=== PATIENT | male | born 1965 | race Caucasian/White ===

== ENCOUNTER → 2022-11-03 | Outpatient (CLI) | payer BC ==
--- NOTE | 2022-11-03 13:51 | US ---
EXAMINATION TYPE: US scrotum with doppler. Grayscale and color Doppler Duplex imaging performed of t moreno scrotum. DATE OF EXAM: 11/03/2022 COMPARISON: NONE CLINICAL INDICATION: Male, 57 years old with history of N50.89OTHER SPECIFIED DISORDERS OF THE MALE G ENITAL ORGANS; Lump EXAM MEASUREMENTS: TESTICLES: Right Testicle: 4.4 x 2.0 x 3.1 cm anechoic area seen 0.3 x 0.3 x 0.3 cm. Left Testicle: 3.8 x 2.3 x 3.3 cm EPIDIDYMIS HEAD: Right Epididymis: 1.7 x 1.5 x 1.0 cm Anechoic area seen 1.5 x 1.1 x 1.4 cm. Left Epididymis: 2.3 x 1.9 x 3.4 cm anechoic area 2.3 x 1.7 x 3.4 cm. Questionable internal echoes. Doppler performed to assess for testicular vascularity; good bilateral color flow and waveforms are s een. There is no evidence of testicular torsion. Presence of hydroceles: no Presence of varicoceles: no IMPRESSION: 1. Left epididymal cyst which could have internal echoes and represent a spermatocele. 2. Appropriate arterial and venous spectral waveforms bilaterally. 3. No evidence for testicular solid mass. There is an intratesticular simple appearing cyst in the r ight testicle.
== END | disposition home or self-care (01) ==
LOC: RADUSWWP 13:04
PROVIDERS: ATTEND Family Medicine
DX: N50.3 Cyst of epididymis (principal); N50.89 Other specified disorders of the male genital organs
CPT/HCPCS: 76870; 93975